=== PATIENT | female | born 1975 | race Caucasian/White ===

== ENCOUNTER 2017-06-02 12:06 | Emergency (ER) | payer OTHER, MEDICAID ==
[2017-06-02 12:17] VITALS: RESP 16
[2017-06-02 13:21] LABS: COLOR YELLOW; LEUKOCYTE ESTERASE,URINE NEGATIVE (NEGATIVE); NITRITE,URINE NEGATIVE (NEGATIVE)
[2017-06-02 14:03] LABS: % IMMATURE GRANULYOCYTES 0.3 % (0.0-1.1); ABSOLUTE IMMATURE GRANULOCYTES 0.02 10^3/uL (0.00-0.10); ADD DIFF? NO; ADD MORPH? NO; ADD SCAN? NO; ATYPICAL LYMPHOCYTE FLAG 0 (0-99); FRAGMENT RBC FLAG 0 (0-99); HEMATOCRIT 42.3 % (38.0-47.0); HEMOGLOBIN 14.2 g/dL (12.6-16.3); LEFT SHIFT FLG 0 (0-99); LIPEMIA HEMOLYSIS FLAG 80 (0-99); MEAN CELL HEMOGLOBIN 28.3 pg (27.9-34.1); MEAN CELL HEMOGLOBIN CONCENTR. 33.6 g/dL (32.4-36.7); MEAN CELL VOLUME 84.4 fL (81.5-99.8); MEAN PLATELET VOLUME 10.2 fL (8.7-11.7); PLATELET CLUMPS FLAG 0 (0-99); PLATELET COUNT 168 10^3/uL (150-400); RED BLOOD CELL COUNT 5.01 10^6/uL (4.18-5.33); RED CELL DISTRIBUTION WIDTH 13.3 % (11.5-15.2)
--- NOTE | 2017-06-02 14:10 | EDPHY ---
H & P Stated Complaint: pelvic congestion syndrome/1 year worse last few days l side Time Seen by Provider: 06/02/17 12:50 HPI/ROS: CHIEF COMPLAINT: acute on chronic abdominal pain HISTORY OF PRESENT ILLNESS: 42-year-old female presents emergency department complaining of a 2 year history of left ovarian pain that radiates down the front of her left leg. Patient states she has been seen by her OBGYN and had an ultrasound in July that showed pelvic congestion. The patient states that is her pain occurs 24 hours after ovulation and lasts 10-14 days until her menstrual period starts. It is crampy in nature. She denies fevers or chills, no nausea or vomiting. No loss of control of her bowel or bladder, no saddle anesthesias. She reports sometimes her pain is in her left lateral hip. She denies leg weakness. Patient reports normal bowel movements, no urinary symptoms, no vaginal discharge. REVIEW OF SYSTEMS: A comprehensive 10 point review of systems is otherwise negative aside from elements mentioned in the history of present illness. Source: Patient Exam Limitations: No limitations - Personal History LMP (Females 10-55): 15-21 Days Ago Current Tetanus/Diphtheria Vaccine: Unsure - Medical/Surgical History Hx Asthma: No Hx Chronic Respiratory Disease: No Hx Diabetes: No Hx Cardiac Disease: No Hx Renal Disease: No Hx Cirrhosis: No Hx Alcoholism: No Hx HIV/AIDS: No Hx Splenectomy or Spleen Trauma: No Other PMH: hashimotos, anxiety, depression - Social History Smoking Status: Never smoked - Physical Exam Exam: Physical Exam Gen: Alert and Oriented, NAD HEENT: PERRL, moist mucous membranes NECK: no meningismus CV: regular rate and regular rhythm PULM: CTAB, no wheezes ABDOMEN: soft, non tender to palpation, BS present BACK: No CVA tenderness, no lumbar spine tenderness NEURO: Neurologically grossly intact, 2/4 deep tendon reflexes patellar and Achilles, 5/5 strength bilateral lower extremities EXTREMITIES: normal appearing SKIN: no rash or break in skin on exposed skin PSYCH: answers questions appropriately. Constitutional: Initial Vital Signs Temperature (C) 37.2 C 06/02/17 12:14 Heart Rate 79 06/02/17 12:14 Respiratory Rate 16 06/02/17 12:14 Blood Pressure 122/80 H 06/02/17 12:14 O2 Sat (%) 99 06/02/17 12:14 O2 Delivery Mode Room Air Allergies/Adverse Reactions: prochlorperazine [From Compazine] Allergy (Verified 06/02/17 12:12) prochlorperazine edisylate [From Compazine] Allergy (Verified 06/02/17 12:12) prochlorperazine maleate [From Compazine] Allergy (Verified 06/02/17 12:12) Home Medications: Medication Instructions Recorded Atenolol 04/08/16 Synthroid 04/08/16 Hydrocodone/APAP 5/325 [[place] 1 tab PO Q4H PRN #7 tab 06/02/17 5/325] Medical Decision Making - Diagnostics Imaging Results: Imaging Impressions Pelvic/Renal Ultrasound 06/02/17 13:30 Impression: 1. Normal pelvic ultrasound for age. No new significant abnormality since the prior study. 2. Mildly prominent left adnexal veins once again noted. 3. Incidental involuted follicular cyst left adnexa. Findings discussed with Herlinda Adams NP at 15:10 hour, 06/02/2017. ED Course/Re-evaluation: IV established, CBC, chemistry panel, urinalysis and urine test ordered. Pelvic ultrasound obtained. Pt has a normal physical exam, labs are normal, ultrasound shows an unchanged pelvic congestion. Pt was offered toradol and refused as she is trying to conceive. She was given a norco in the ED. She is discharged with a small prescription for [place] and agrees to follow up with her obgyn. Differential Diagnosis: The differential diagnosis for the patient's abdominal pain included but was not limited to ovarian cyst, pelvic inflammatory disease, ovarian torsion, urinary tract infection, ectopic , cholecystitis, and appendicitis. - Data Points Laboratory Results: Laboratory Results 06/02/17 13:59 06/02/17 13:59 06/02/17 06/02/17 06/02/17 13:59 13:59 13:15 WBC 6.85 10^3/uL 10^3/uL (3.80-9.50) RBC 5.01 10^6/uL 10^6/uL (4.18-5.33) Hgb 14.2 g/dL g/dL (12.6-16.3) Hct 42.3 % % (38.0-47.0) MCV 84.4 fL fL (81.5-99.8) MCH 28.3 pg pg (27.9-34.1) MCHC 33.6 g/dL g/dL (32.4-36.7) RDW 13.3 % % (11.5-15.2) Plt Count 168 10^3/uL 10^3/uL (150-400) MPV 10.2 fL fL (8.7-11.7) Neut % (Auto) 63.5 % % (39.3-74.2) Lymph % (Auto) 28.6 % % (15.0-45.0) [place] % (Auto) 6.6 % % (4.5-13.0) Eos % (Auto) 0.7 % % (0.6-7.6) Baso % (Auto) 0.3 % % (0.3-1.7) Nucleat RBC Rel Count 0.0 % % (0.0-0.2) Absolute Neuts (auto) 4.35 10^3/uL 10^3/uL (1.70-6.50) Absolute Lymphs (auto) 1.96 10^3/uL 10^3/uL (1.00-3.00) Absolute Monos (auto) 0.45 10^3/uL 10^3/uL (0.30-0.80) Absolute Eos (auto) 0.05 10^3/uL 10^3/uL (0.03-0.40) Absolute Basos (auto) 0.02 10^3/uL 10^3/uL (0.02-0.10) Absolute Nucleated RBC 0.00 10^3/uL 10^3/uL (0-0.01) Immature Gran % 0.3 % % (0.0-1.1) Immature Gran # 0.02 10^3/uL 10^3/uL (0.00-0.10) Sodium 138 mEq/L mEq/L (134-144) Potassium 4.3 mEq/L mEq/L (3.5-5.2) Chloride 105 mEq/L mEq/L (97-110) Carbon Dioxide 23 mEq/l mEq/l (22-31) Anion Gap 10 mEq/L mEq/L (8-16) BUN 16 mg/dL mg/dL (7-23) Creatinine 1.1 mg/dL H mg/dL (0.6-1.0) Estimated GFR 54 Glucose 86 mg/dL mg/dL (70-100) Calcium 9.4 mg/dL mg/dL (8.5-10.4) Urine Color YELLOW Urine Appearance HAZY Urine pH 7.0 (5.0-7.5) Ur Specific [place] 1.023 (1.002-1.030) Urine Protein NEGATIVE (NEGATIVE) Urine Ketones NEGATIVE (NEGATIVE) Urine Blood NEGATIVE (NEGATIVE) Urine Nitrate NEGATIVE (NEGATIVE) Urine Bilirubin NEGATIVE (NEGATIVE) Urine Urobilinogen NEGATIVE EU EU (0.2-1.0) Ur Leukocyte Esterase NEGATIVE (NEGATIVE) Urine Glucose NEGATIVE (NEGATIVE) Urine Test 06/02/17 13:15 WBC RBC Hgb Hct MCV MCH MCHC RDW Plt Count MPV Neut % (Auto) Lymph % (Auto) Reynolds % (Auto) Eos % (Auto) Baso % (Auto) Nucleat RBC Rel Count Absolute Neuts (auto) Absolute Lymphs (auto) Absolute Monos (auto) Absolute Eos (auto) Absolute Basos (auto) Absolute Nucleated RBC Immature Gran % Immature Gran # Sodium Potassium Chloride Carbon Dioxide Anion Gap BUN Creatinine Estimated GFR Glucose Calcium Urine Color Urine Appearance Urine pH Ur Specific [place] Urine Protein Urine Ketones Urine Blood Urine Nitrate Urine Bilirubin Urine Urobilinogen Ur Leukocyte Esterase Urine Glucose Urine Test NEGATIVE Medications Given: Discontinued Medications Ketorolac Tromethamine (Toradol) 15 mg IVP EDNOW ONE Stop: 06/02/17 14:56 Last Admin: 06/02/17 15:13 Dose: Not Given Departure - Departure Disposition: Home, Routine, Self-Care Clinical Impression: acute on chronic pelvic pain Condition: Good Instructions: Pelvic Pain in Women (ED) Additional Instructions: Take 600mg of ibuprofen every 8 hours with food for 3-5 days. Take 650mg of tylenol every 8 hours as needed for pain. Warm compresses. Follow up with your obgyn at first available appointment. Take 1 hydrocodone every 4-6 hours as needed for severe pain. Each hydrocodone has 325mg of tylenol in it, do not take more than 3000mg of tylenol in 24 hours. Referrals: Demi Humphreys CNM [Certified Nurse Sound Effects Technician] - As per Instructions Prescriptions: Hydrocodone/APAP 5/325 [[place] 5/325] 1 tab PO Q4H PRN #7 tab PRN Reason: Pain, Moderate
[2017-06-02 14:26] LABS: ANION GAP 10 mEq/L (8-16); CALCIUM 9.4 mg/dL (8.5-10.4); CARBON DIOXIDE 23 mEq/l (22-31); CHLORIDE 105 mEq/L (97-110); CREATININE 1.1 mg/dL (0.6-1.0); GLOMERULAR FILTRATION RATE 54; GLUCOSE 86 mg/dL (70-100); POTASSIUM 4.3 mEq/L (3.5-5.2); SODIUM 138 mEq/L (134-144)
[2017-06-02] MEDS ORDERED: KETOROLAC 15 MG/1 ML SDV IVP ONE (14:55)
[2017-06-02] MEDS ORDERED: HYDROCODONE/APAP 5/325 TAB PO ONE (15:48)
[2017-06-02 15:52] VITALS: BP 131/78; PULSE 76; TEMP 98.6; O2SAT 97
== END 2017-06-02 15:50 | disposition home or self-care (01) ==
DX: R10.2 Pelvic and perineal pain (principal); G89.29 Other chronic pain
CPT/HCPCS: 76856; 99284; J1885; 84144-90; 84481-90

== ENCOUNTER 2017-08-19 17:28 | Emergency (ER) | payer OTHER, MEDICAID ==
[2017-08-19 17:48] VITALS: TEMP 98.1
--- NOTE | 2017-08-19 17:59 | CPEKG ---
Heart Rate: 69 RR Interval: 870 P-R Interval: 188 QRSD Interval: 82 QT Interval: 416 QTC Interval: 446 P [place]: 46 QRS [place]: -75 T Wave [place]: 8 EKG Severity - ABNORMAL ECG - EKG Impression: SINUS RHYTHM EKG Impression: PROBABLE INFERIOR INFARCT, AGE INDETERMINATE EKG Impression: ABNRM R PROG, due to LEAD PLACEMENT EKG Impression: Compared to EKG of 11/04/2015 this is unchanged. Electronically Signed By: Joshua Cadena 19-Aug-2017 20:28:26
--- NOTE | 2017-08-19 18:20 | EDPHY ---
H & P Stated Complaint: Chest pain and palpitations Time Seen by Provider: 08/19/17 17:49 HPI/ROS: CHIEF COMPLAINT: palpitations and. The chest pain HISTORY OF PRESENT ILLNESS: for several months now she has been having palpitations as well as chest discomfort. She attributes these to her taking the thyroid medication. However symptoms have not improved during the month of June when she was on a hiatus of not taking any of the thyroid medicines. Symptoms have worsened in the last week or 2 to the point where she is suspicious that her thyroid medications are awry and her levels are high. She notes that she has a TSH of approximately 9 as well as a T3 of 2.77 in a T4 of 0.94 These palpitations she feels are worse in the days that she takes a full-dose of the 0.15. They have a sense of heart racing. At time she has had a pulse as high as 108 but is top others times 77. There are some occasional irregularities rather than consistently chaotic rhythm. The chest discomfort does come and go. Virtually daily. Never associated with exercise. She states that she might be fatigued when she would up two flight of stairs but would able to do so without any chest discomfort. Cardiac risk factors would be solely her being overweight. Mother and father in their 70s without known coronary disease. She does not smoke, nor does she has elevated cholesterol or diabetes. However, there has been no weight loss or known atrial fibrillation. She does however experience constipation. No associated diaphoresis or shortness of breath. No known leg swelling. Age > 50 0 HR > 100 0 O2 Sat RA < 95% 0 Hx of DVT/PE 0 Trauma or Surgery, rece t 0 Hemoptosis 0 Estrogen Rx 0 Unilateral leg swelling 0 REVIEW OF SYSTEMS: Constitutional: No fever, no chills. Eyes: No discharge ENT: No sore throat. Cardiovascular: See above Respiratory: No cough, shortness of breath, or wheezing. Gastrointestinal: No nausea vomiting or diarrhea. No abdominal pain. Genitourinary: No hematuria or frequency. Musculoskeletal: No back pain, no unilateral leg pain or swelling Skin: No rashes. Neurological: No headache. 10 point ROS otherwise negative Source: Patient Exam Limitations: No limitations - Personal History LMP (Females 10-55): 1-7 Days Ago Current Tetanus/Diphtheria Vaccine: Yes Current Tetanus Diphtheria and Acellular Pertussis (TDAP): Yes - Medical/Surgical History Hx Asthma: No Hx Chronic Respiratory Disease: No Hx Diabetes: No Hx Cardiac Disease: No Hx Renal Disease: No Hx Cirrhosis: No Hx Alcoholism: No Hx HIV/AIDS: No Hx Splenectomy or Spleen Trauma: No Other PMH: hashimotos, anxiety, depression, ocd, - Family History Significant Family History: No pertinent family hx - Social History Smoking Status: Former smoker Alcohol Use: None Drug Use: None - Physical Exam Exam: General Appearance: Alert, no distress. Afebrile. Normal phonation. No respiratory distress. Eyes: Pupils equal and round no pallor or injection. No icterus ENT, Mouth: Mucous membranes moist slightly dry moderately dry Pharynx without erythema or exudate. TM Clear. Neck: No adenopathy. Supple. No JVD. Trachea in midline. Respiratory: There are no retractions, lungs are clear to auscultation. Chest wall: Nontender to palpation. No crepitus. Cardiovascular: Regular rate and rhythm. Abdomen: Soft and nontender, no masses, bowel sounds normal. Femoral pulses equal. Neurological: Ox3. No motor weakness. Sensation intact. Gait nl. Skin: Warm and dry, no rashes. Musculoskeletal: No joint swelling. Extremities: No edema. Homans sign negative. No cords. Psychiatric: Normal affect. Patient is oriented X 3. There is no agitation Constitutional: Initial Vital Signs Temperature (C) 36.7 C 08/19/17 17:43 Heart Rate 89 08/19/17 17:43 Respiratory Rate 20 08/19/17 17:43 Blood Pressure 149/101 H 08/19/17 17:43 O2 Sat (%) 98 08/19/17 17:43 O2 Delivery Mode Room Air Allergies/Adverse Reactions: prochlorperazine [From Compazine] Allergy (Verified 08/19/17 17:41) prochlorperazine edisylate [From Compazine] Allergy (Verified 08/19/17 17:41) prochlorperazine maleate [From Compazine] Allergy (Verified 08/19/17 17:41) Home Medications: Medication Instructions Recorded Atenolol 04/08/16 Synthroid 04/08/16 Hydrocodone/APAP 5/325 [[place] 1 tab PO Q4H PRN #7 tab 06/02/17 5/325] clonazePAM [Klonopin (*)] 0.5 mg PO TID #30 tab 08/19/17 Medical Decision Making - Diagnostics EKG Interpretation: My EKG interpretation as noted in the trace master shows none significant cues in 2 3 and F as well as lead position related poor progression of R wave across the precordium, without ischemia. Unchanged from October 2015 - we have pain obtained by fax transmission from [facility] ED Course/Re-evaluation: Indeed her levels were checked and were essentially unchanged from this past June. Her T3 was up a little bit from this past June. and her T4 was down from 0.94 to 0.65, with a TSH somewhat in the same range as before Had a lengthy discussion with the patient. I feel her symptoms are most likely attributable to anxiety and was suggest she trial a course of Klonopin. She should follow up with her family physician in the 5-7 days. While on this medication she should not take increasing doses of atenolol so as to understand the concept of doing an effort head changing 1 variable at time. It seems she attributes her anxiety related symptoms to changes in her thyroid medications however I do not feel it is likely in that she is having the swings on a daily basis. Further, she and her family physician as planned her to see a investigation officer sometime in November. She continue with her current dosing of the thyroid medication unchanged Differential Diagnosis: Diagnostic considerations include, but are not limited to, the following: Thyrotoxicosis, thyroid storm, hypothyroidism, acute anxiety, atrial fibrillation, coronary disease. - Data Points Laboratory Results: 08/19/17 18:00 TSH 9.700 uIU/mL H uIU/mL (0.465-4.680) Free T4 0.65 ng/dL ng/dL (0.59-2.19) Free T3 3.11 pg/mL pg/mL (2.77-5.27) Departure - Departure Disposition: Home, Routine, Self-Care Clinical Impression: Palpitations, Anxiety Condition: Good Instructions: Palpitations (ED), Anxiety (ED) Additional Instructions: [place] your Atenolol for when your palpitations are particularly strong Take the KLONOPIN 3x a day to see if it works - no driving until released by your doctor, as this medication is sedating. Referrals: NONE *PRIMARY CARE P,. [Primary Care Provider] - As per Instructions Prescriptions: clonazePAM [Klonopin (*)] 0.5 mg PO TID #30 tab
[2017-08-19 19:17] VITALS: BP 135/90; PULSE 73; RESP 18; O2SAT 99
== END 2017-08-19 19:22 | disposition home or self-care (01) ==
LOC: CED 17:28
DX: R00.2 Palpitations (principal); F41.9 Anxiety disorder, unspecified; Z87.891 Personal history of nicotine dependence
CPT/HCPCS: 84439-PO; 84443-PO; 84481-PO